=== PATIENT | male | born 2000 | race Caucasian/White ===

== ENCOUNTER 2025-05-11 09:26 | Emergency (ER) | payer OTHER, SELFPAY ==
[2025-05-11 09:30] VITALS: BP 148/95
--- NOTE | 2025-05-11 10:41 | ED.GENMED ---
History of Present Illness
General
Chief Complaint: Breathing Problem
Source: patient
Time Seen by Provider: 05/11/25 10:29
History of Present Illness
History of Present Illness:
25-year-old male presents to the emergency room for evaluation of chest pain. Patient has been having intermittent chest pain for the past several days. Initially the pain would be brief in the order of a few seconds. Over the past couple days
its been more frequent and more persistent. Today has had discomfort since 6 AM. He feels a bit short of breath. Patient states it is hard to say if the pain is much worse with deep inspiration but certainly not dramatically so. No known fever.
He does have a cough. No nausea or vomiting.
Phy Exam
Physical Exam
Physical Exam:
General: Awake, Alert, Oriented X3. No acute distress.
Vitals: unremarkable
Head: Atraumatic
Eyes: Pupils equal, EOMI
Throat: Airway intact, no exudates
Neck: Trachea midline
Lungs: Clear and equal b/l
Heart: Regular rate, no murmurs
Abd: Soft, Nontender, No pulsatile mass
Neuro: Nonfocal
Skin: Warm, dry, no rash
Extremities: pulses equal b/l, no edema
Course
Orders/Labs/Results
Orders:
Orders
05/11/25 09:33
ECG [Electrocardiogram (*1)] Urgent
Reason for Study: Chest Pain
Other Reason for Exam: shortness of breath
EKG- Treatment ONCE
05/11/25 10:39
Cardiac Monitoring- Treatment ONCE
05/11/25 10:40
CR Chest - 2 Views Urgent
Comment:
Reason For Exam: chest pain
05/11/25 10:50
COVID-19 Antigen Urgent
Source: Nasal Swab
Complete Blood Count/With Diff Urgent
Comprehensive Metabolic Panel Urgent
D-Dimer Urgent
Lipase Urgent
Magnesium Urgent
Troponin I Urgent
Abnormal Lab Results
05/11/25
10:50
MCH 32.8 H pg
(27.0-31.0)
MCHC 37.1 H g/dL
(33.0-37.0)
Immature Gran % 0.8 H %
(0-0.5)
Glucose 105 H mg/dl
(70-99)
AST 79 H U/L
(17-59)
ALT 181 H U/L
(0-50)
05/11/25 10:50
05/11/25 10:50
Vital Signs
Initial and Last Documented VS:
Initial Vital Signs
Temp Pulse Resp BP Pulse Ox
99.4 F 94 16 148/95 99
05/11/25 09:30 05/11/25 09:30 05/11/25 09:30 05/11/25 09:30 05/11/25 09:30
Last Documented Vital Signs
Temp Pulse Resp BP Pulse Ox
99.4 F 76 28 106/78 93
05/11/25 09:30 05/11/25 12:30 05/11/25 12:30 05/11/25 12:00 05/11/25 12:30
MDM/Problems Addressed
Differential Diagnosis Includes:
Chest wall pain, GERD, angina, PE
MDM/Problems Addressed:
Patient presents with difficulty 1 day chest pain. Vital signs are normal here. Labs show no significant. He does have mild elevation of his transaminases but he is told this in the past. He has fatty liver disease and this is likely the
culprit. Troponin is normal. Chest x-ray shows no acute abnormality. D-dimer is normal. Patient stable for discharge and outpatient follow-up with his primary care provider
*Radiology
Radiology exam reviewed: preliminary read by ED provider (No acute disease on my review of the patient's chest x-ray)
*Pulse Oximetry
SaO2: 99
Oxygen Mode of Delivery: Room air
Patient hypoxic: no
*EKG
Interpreted by ED Provider?: Yes
Interpretation: normal
Heart Rate: 96
Rate: normal
Rhythm: sinus
[place]: normal axis
Interval: normal interval
QRS Pattern: normal QRS
Ischemia: no ischemia
*[employer] Interpretation
Rate: normal
Interpretation: normal
Rhythm: sinus
*Critical Care Note
Total Time (30-74mins, 75-104mins- exclusive of procedures): Not Applicable
ED Attending Note
-
Portions of this chart may have been created with voice recognition software.� Occasional wrong word or��sound alike� substitutions may have occurred due to the inherent limitations of voice recognition software.
Discharge Plan
Departure
Patient Disposition: Home (Routine Discharge)
Date of Disposition: 05/11/25
Time of Disposition: 12:27
Patient with high blood pressure during this ER visit?: No
Condition: Good
Discharge Problem:
Chest pain
Instructions: Chest Pain PCP Follow Up
Prescriptions:
No Action
ibuprofen 800 MG tablet
1 tab PO Q8H PRN (Reason: pain)
sumatriptan succinate 50 MG tablet
50 mg PO PRN PRN (Reason: headache)
albuterol sulfate 1 PUFF HFA aerosol inhaler
1 puff inhalation R Q4HPRN PRN (Reason: wheezing)
fluticasone propionate 1 SPRAY spray,suspension
1 spray intranasal DAILY
Patient Comments:
Both nostrils
topiramate [Trokendi XR] 100 MG capsule,extended release 24hr
100 mg PO HS
Ovar
2 puff inhalation DAILY
divalproex 250 MG tablet,delayed release (DR/EC)
250 mg PO BID Qty: 20 0RF
topiramate [Trokendi XR] 200 MG capsule,extended release 24hr
200 mg PO DAILY
doxycycline hyclate 100 MG capsule
100 mg PO Q12 Qty: 28 0RF
ibuprofen 600 MG tablet
600 mg PO Q6H Qty: 20 0RF
Referrals:
Glo Prabhakar DO [Family Provider, [facility]]
Activity Restrictions/Additional Instructions:
Testing here showed no significant abnormalities. Your chest x-ray was read as normal by the radiologist. Your liver enzymes are mildly elevated consistent with your known history of fatty liver disease. Make sure you are taking your reflux
medications on a regular basis. Follow-up with your primary care doctor.
Interventions
Interventions:
*Risk Screen - Suicide Last Done: 05/11/25 10:57
*General Assessment Last Done: 05/11/25 10:57
*Neglect/Abuse Screening Last Done: 05/11/25 10:57
*ED- Fall Risk Assessment Last Done: 05/11/25 10:57
*ED COVID-19 Vaccine History Last Done: 05/11/25 10:57
*Nursing Disposition Last Done: 05/11/25 12:40
ED- Cardiac Assessment Last Done: 05/11/25 10:57
ED- Pulmonary Assessment Last Done: 05/11/25 10:57
Discharge Date and Time
Discharge Date/Time: 05/11/25 12:40
Print Language: [place]
[2025-05-11 10:53] VITALS: BMI 30.7
[2025-05-11 10:59] LABS: Hematocrit 43.9 % (39.0-52.0); Hemoglobin 16.3 g/dL (13.0-18.0); Mean Corp Hgb Conc. 37.1 g/dL (33.0-37.0); Mean Corpuscular Volume 88.3 fL (80.0-94.0); Nucleated Red Blood Cells % 0 % (-); Platelet Count 164 10^3/uL (130-400); Red Cell Dist. Width 11.9 % (11.5-14.5)
[2025-05-11 11:07] VITALS: BP 117/86
[2025-05-11 11:19] LABS: ALT (SGPT) 181 U/L (0-50); AST (SGOT) 79 U/L (17-59); Albumin 5.0 g/dl (3.5-5.0); Alkaline Phosphatase 46 U/L (38-126); Blood Urea Nitrogen 12 mg/dl (9-20); Calcium 9.7 mg/dl (8.4-10.2); Carbon Dioxide 29 mmol/L (22-30); Chloride 105 mmol/L (98-107); Estimated Creatinine Clearance > 125 ml/min; Glucose 105 mg/dl (70-99); Lipase 78 U/L (23-300); Magnesium 2.0 mg/dl (1.6-2.3); Potassium 4.0 mmol/L (3.5-5.1); Sodium 140 mmol/L (135-145); Total Protein 7.6 g/dl (6.3-8.2); eGFR > 60.00
[2025-05-11 11:20] LABS: D-Dimer < 0.27 ug/mlFEU (0.00-0.50)
[2025-05-11 11:28] LABS: Troponin I < 0.012 ng/ml
--- NOTE | 2025-05-11 11:35 | EDRN ---
Patient updated on lab work, patient resting comfortably at this time.
[2025-05-11 12:00] VITALS: BP 106/78
[2025-05-11 19:13] LABS: COVID-19 Antigen Negative (Negative)
== END 2025-05-11 12:40 | disposition home or self-care (01) ==
LOC: EMR 09:26
PROVIDERS: EMERGENCY PHYSICIAN Emergency Medicine; FAMILY PHYSICIAN Family Medicine
DX: R07.9 Chest pain, unspecified (principal); K76.0 Fatty (change of) liver, not elsewhere classified
CPT/HCPCS: 99285; 71046; 80053; 83690; 83735; 84484; 85025; 85379; 87811; 93005